=== PATIENT | male | born 1950 | race Caucasian/White ===

== ENCOUNTER 2016-05-29 18:25 | Emergency (ER) | payer BC, OTHER ==
[~2016-05-29] VITALS: Ht 193 cm; Wt 111.1 kg
[2016-05-29 18:28] VITALS: BP 144/99
[2016-05-29] MEDS ORDERED: LISINOPRIL20 MG PO (18:31)
[2016-05-29] MEDS ORDERED: NYSTATIN 1100000 U/M SWISH&SPIT (18:34)
[2016-05-29] MEDS ORDERED: MAGIC MOUTHWASH SWISH&SPIT (18:35)
== END 2016-05-29 18:56 | disposition home or self-care (01) ==
LOC: ER 18:25
DX: B37.0 Candidal stomatitis (principal); I10 Essential (primary) hypertension; Z88.0 Allergy status to penicillin; Z91.030 Bee allergy status